=== PATIENT | female | born 1960 | race Caucasian/White ===

== ENCOUNTER → 2017-02-19 | Outpatient (CLI) | payer OTHER | END | disposition home or self-care (01) | LOC: MAMMO 16:12 | PROVIDERS: ATTEND Surgery | DX: Z12.31 Encounter for screening mammogram for malignant neoplasm of breast (principal) ==

== ENCOUNTER 2017-12-25 20:18 | Emergency (ER) | payer SELFPAY ==
--- NOTE | 2017-12-25 21:12 | ED.PDOC ---
History of Present Illness - General Chief Complaint: Abdominal Pain Stated Complaint: Abdominal Swelling Time Seen by Provider: 12/25/17 20:26 Information Source: patient Exam Limitations: no limitations - History of Present Illness Initial Comments: Valencia Gamez 57 y/o female stated that she had abdominal distention since this morning not any better.Denies abdominal pain ,diarrhea,nausea,vomiting.She was able to eat regular diet tonight w/o N/V,had bowel movement this morning.Denies fever,or any history of indigestion. Abdominal Pain Onset Location: other - NO ABDOMINAL PAIN Pain Radiation: no radiation Timing/Duration: 7-24 hours Improving Factors: nothing Worsening Factors: nothing Associated Symptoms: denies symptoms Review of Systems - Review of Systems Constitutional: States: no symptoms reported EENTM: States: no symptoms reported Respiratory: States: no symptoms reported Cardiology: States: no symptoms reported Gastrointestinal/Abdominal: States: see HPI Genitourinary: States: no symptoms reported Musculoskeletal: States: no symptoms reported Skin: States: no symptoms reported Neurological: States: no symptoms reported All other Systems: Reviewed and Negative Past Medical History (General) - Patient Medical History Hx Seizures: No Hx Stroke: No Hx Dementia: No Hx Asthma: No Hx of COPD: No Hx Cardiac Disorders: Yes Hx Congestive Heart Failure: No Hx Pacemaker: No Hx Hypertension: No Hx Thyroid Disease: No Hx Diabetes: No Hx Gastroesophageal Reflux: Yes Hx Renal Disease: No Hx Cancer: No Hx of HIV: No Hx Hepatitis C: No Hx MRSA: No Hx Other PMH: Yes - Fibromyalgia Surgical History: appendectomy, tonsillectomy, other - hysterectomy,cardiac cath ,tummy tuck,breast reduction - Vaccination History Hx Tetanus, Diphtheria Vaccination: No Hx Influenza Vaccination: No Hx Pneumococcal Vaccination: No Immunizations Up to Date: No - Social History Hx Tobacco Use: No Hx Alcohol Use: No Hx Substance Use: No Hx Substance Use Treatment: No Hx Depression: No Feels Threatened In Home Enviroment: No Feels Threatened In a Relationship: No Hx Physical Abuse: No Hx Emotional Abuse: No Hx Suspected Abuse: No - Female History Patient is a Female of Child Bearing Age (10 -59 yrs old): Yes Patient : No - Triage Comment ED Triage Comment: Pt had hysterectomy at age 26 Family Medical History - Family History Mother Living Status: Age at (years of age): 80 Cause of : cancer Hx Family Asthma: No Hx Family Congestive Heart Failure: Yes Hx Family Hypertension: Yes Hx Cardiac Disease: Yes - COPD Hx Family Cancer: Yes - lungs-mom,prostate-dad;Crohns-brother Physical Exam - Physical Exam General Appearance: Alert, Comfortable, No apparent distress Eyes, Ears, Nose, Throat Exam: normal ENT inspection Neck: non-tender, full range of motion Respiratory: chest non-tender, lungs clear Cardiovascular/Chest: regular rate, rhythm, no murmur Peripheral Pulses: No deficit Gastrointestinal/Abdominal: non tender, soft, no organomegaly, abnormal bowel sounds, distended Back Exam: no CVA tenderness, no vertebral tenderness Extremity: no pedal edema, no calf tenderness Neurologic: alert, oriented x 3 Lymphatic: no adenopathy Progress - Progress Progress: 12/25/17 23:12 Vital Signs - 8 hr 12/25/17 20:39 Temperature 98.5 F Pulse Rate [ 65 Apical] Respiratory 18 Rate Blood Pressure 120/50 [Left Arm] O2 Sat by Pulse 100 Oximetry - Results/Orders Results/Orders: 12/25/17 21:25 IV Care:Saline Lock per Protoc QSHIFT 12/25/17 22:03 Hold Metformin x 48Hrs [id number] Laboratory Results - last 24 hr 12/25/17 12/25/17 12/25/17 21:32 21:32 21:40 WBC 8.0 RBC 4.49 Hgb 13.5 Hct 39.3 MCV 87.5 MCH 30.1 MCHC 34.4 RDW 13.1 Plt Count 302 MPV 7.0 L Absolute Neuts (auto) 4.50 Absolute Lymphs (auto) 2.30 Absolute Monos (auto) 0.90 H Absolute Eos (auto) 0.20 Absolute Basos (auto) 0.10 Neutrophils % 56.6 Lymphocytes % 28.7 Monocytes % 11.2 H Eosinophils % 2.6 Basophils % 0.9 Sodium 139 Potassium 3.5 L Chloride 107 Carbon Dioxide 26 Anion Gap 9.5 L BUN 11 Creatinine 0.61 BUN/Creatinine Ratio 18.0 Random Glucose 112 H Serum Osmolality 277.7 Calcium 9.5 Total Bilirubin 0.4 AST 18 ALT 16 Alkaline Phosphatase 61 Serum Total Protein 6.7 Albumin 3.8 Globulin 2.9 Albumin/Globulin Ratio 1.3 Lipase 47 Urine Color Yellow Urine Appearance Clear Urine pH 7.0 Ur Specific [place] 1.020 Urine Protein Negative Urine Glucose (UA) Negative Urine Ketones Negative Urine Blood Trace-lysed H Urine Nitrite Negative Urine Bilirubin Negative Urine Urobilinogen 0.2 Ur Leukocyte Esterase Trace H Urine RBC 1-3 Urine WBC 3-5 H Ur Epithelial Cells 1-3 Urine Bacteria 3+ H - EKG/XRAY/CT CT Ordered: Yes - abd/p w/contrast-pancreatic lesion 15 mm Departure - Departure Clinical Impression: Abdominal distention, non-gaseous, Pancreatic cyst Time of Disposition: 23:30 Disposition: Discharge to Home or Self Care Condition: Fair Departure Forms: ED Discharge - Pt. Copy, Patient Portal Self Enrollment Diet: low fat, low cholesterol - until better;need to steam veggies, other - Avoid dairy foods until better Referrals: Amadou Reyes MD [Primary Care Provider] - 1-2 Weeks Home Medications: Ambulatory Orders DULoxetine HCL [Cymbalta] 20 mg PO DAILY 01/24/16 Meclizine HCl [Antivert] 25.5 mg PO TID PRN #15 tab 01/24/16 traZODone HCL [Desyrel] 50 mg PO BEDTIME 01/24/16 Additional Instructions: Need to follow up with primary Md 26 December 2017
[2017-12-25] MEDS ORDERED: SODIUM CHLORIDE 0.9% 1000ML 1,000 ML IVS ONE (22:03)
--- NOTE | 2017-12-25 23:01 | CT ---
EXAM DESCRIPTION: Abdomen/Pelvis w/Contrast CLINICAL HISTORY: abdominal distention COMPARISON: None Available TECHNIQUE: Contiguous axial images of the abdomen and pelvis were obtained after the administration of intravenous contrast followed by reconstruction images.This exam was performed according to our departmental dose-optimization program, which includes automated exposure control, adjustment of the mA and/or kV according to patient size and/or use of iterative reconstruction technique. FINDINGS: There is a moderate hiatal hernia. There is no dilated bowel. There is mild thickening of the wall of the terminal ileum, which could be transient. No surrounding soft tissue stranding of the fat to suggest inflammation. There is colonic diverticulosis. There is a cystic lesion of the body of the pancreas measuring approximately 15 mm diameter. Small pancreatic pseudocyst is possible but the lesion is nonspecific. There is soft tissue stranding of the mesentery at the tip of the tail of the pancreas. There is no hydronephrosis. The gallbladder is unremarkable. Adrenal glands are within normal limits. Aorta is normal in caliber and tapering. No significant free fluid. No free air. No bowel obstruction. There is no other stranding of the mesenteric fat. IMPRESSION: Cystic lesion of the body of the pancreas. Possible sequela of prior pancreatitis. Clinical correlation will be helpful. Nonspecific mild thickening of the wall of the terminal ileum without obstruction. No definite acute abnormality. Electronically signed by: Dann Post 12/25/2017 10:58 PM CDT
[2017-12-25 23:35] VITALS: O2SAT 100
[2017-12-26 00:36] VITALS: BP 108/83; TEMP 98.4
== END 2017-12-26 00:35 | disposition home or self-care (01) ==
LOC: ER 20:18
DX: K31.89 Other diseases of stomach and duodenum (principal); K21.9 Gastro-esophageal reflux disease without esophagitis; K86.2 Cyst of pancreas
CPT/HCPCS: 36415; 74177; 80053; 81001; 83690; 85025; J7030

== ENCOUNTER → 2018-01-02 | Outpatient (CLI) | payer SELFPAY ==
--- NOTE | 2018-01-02 13:55 | NM ---
EXAM DESCRIPTION: Hepatobiliar w/CCK CLINICAL HISTORY: Abdominal distention COMPARISON: CT abdomen and pelvis dated December 25, 2017 TECHNIQUE: Routine hepatobiliary scan was performed following intravenous administration of 7.4 mCi technetium 99m mebrofenin. 14 ounces of Ensure Plus fatty medial was used to stimulate gallbladder contraction. FINDINGS: Hepatobiliary scan shows prompt accumulation of the radiopharmaceutical within the liver and excretion into the biliary ductal system, gallbladder, and small bowel. Gallbladder ejection fraction is assessed following oral ingestion of fatty meal. No pain or nausea during gallbladder stimulation phase of the examination. Gallbladder ejection fraction is borderline normal measuring 38%. IMPRESSION: 1. Visualization of the gallbladder essentially excludes acute cholecystitis. 2. Borderline normal gallbladder ejection fraction at 38% (normal range is greater than 35%). Electronically signed by: Cedric Page MD 01/02/2018 1:53 PM CDT
== END ==
LOC: NM 10:07
PROVIDERS: ATTEND Family Medicine
DX: R14.0 Abdominal distension (gaseous) (principal)
CPT/HCPCS: 78227; A9537